=== PATIENT | male | born 1990 | race Two or more races ===

== ENCOUNTER 2022-12-08 05:10 | Day surgery (SDC) | payer OTHER | END 2022-12-08 11:30 | disposition home or self-care (01) | LOC: AMB-ENDOS 05:10 | PROVIDERS: ATTEND Surgery | DX: K62.5 Hemorrhage of anus and rectum (principal); R19.4 Change in bowel habit; K64.8 Other hemorrhoids; Z20.822 Contact with and (suspected) exposure to COVID-19 ==